=== PATIENT | male | born 1995 | race Caucasian/White ===

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

== ENCOUNTER 2018-12-16 21:24 | Emergency (ER) | payer MEDICAID ==
[2018-12-16] MEDS ORDERED: ONDANSETRON 4 MG/2 ML VIAL ONE (21:41)
[2018-12-16] MEDS ORDERED: NS 1,000 ML IV ONE (21:42)
[2018-12-16] MEDS ORDERED: ONDANSETRON 4 MG/2 ML VIAL IVP ONE (21:42)
[2018-12-16] MEDS ORDERED: ACETAMINOPHEN 500 MG TAB PO ONE (21:42)
--- NOTE | 2018-12-16 21:45 | EDPHY ---
H & P Stated Complaint: fever, cough x5 days Time Seen by Provider: 12/16/18 21:36 HPI/ROS: CHIEF COMPLAINT: Cough, sore throat, sinus congestion, fevers for 5 days HISTORY OF PRESENT ILLNESS: Patient is a 23-year-old healthy man who comes to the emergency department complaining of cough, sore throat, sinus congestion and fevers for 5 days. Over the last couple of days he has also started feel nauseous and has vomited 3 times today. Also mild diarrhea nonbloody. He states that he has had a fever up to 103. He did take ibuprofen around 4:00 a.m. This afternoon. No headache. No shortness of breath. He does have mild right rib pain after coughing hard yesterday. He had a negative flu swab taken on Thursday. His throat is now feeling better than it did earlier this week. Severity: Moderate Modifying factors: Improves with NyQuil or ibuprofen REVIEW OF SYSTEMS: Constitutional: See HPI EENTM: See HPI Respiratory: See HPI Cardiac: denies: chest pain, irregular heart rate, lightheadedness, palpitations Gastrointestinal/Abdominal: denies: abdominal pain, diarrhea, nausea, vomiting, blood streaked stools Genitourinary: denies: dysuria, frequency, hematuria, pain Musculoskeletal: denies: joint pain, muscle pain Skin: denies: lesions, rash, jaundice, bruising Neurological: denies: headache, numbness, paresthesia, tingling, dizziness, weakness Hematologic/Lymphatic: denies: blood clots, easy bleeding, easy bruising Immunologic/allergic: denies: HIV/AIDS, transplant 10 systems reviewed and negative except as noted EXAM: GENERAL: Well-appearing, well-nourished and in no acute distress. HEAD: Atraumatic, normocephalic. EYES: Pupils equal round and reactive to light, extraocular movements intact, sclera anicteric, conjunctiva are normal. ENT: TMs normal, nares congested, oropharynx clear without exudates. No erythema. Moist mucous membranes. NECK: Normal range of motion, supple without lymphadenopathy or JVD. LUNGS: Breath sounds clear to auscultation bilaterally and equal. No wheezes rales or rhonchi. HEART: Regular rate and rhythm without murmurs, rubs or gallops. ABDOMEN: Soft, nontender, normoactive bowel sounds. No guarding, no rebound. No masses appreciated. BACK: No CVA tenderness, no spinal tenderness, step-offs or deformities EXTREMITIES: Normal range of motion, no pitting or edema. No clubbing or cyanosis. NEUROLOGICAL: Cranial nerves II through XII grossly intact. Normal speech, normal gait. 5/5 strength, normal movement in all extremities, normal sensation , normal reflexes PSYCH: Normal mood, normal affect. SKIN: Warm, dry, normal turgor, no visible rashes or lesions. Source: Patient Exam Limitations: No limitations - Personal History Current Tetanus/Diphtheria Vaccine: Yes - Medical/Surgical History Hx Asthma: No Hx Chronic Respiratory Disease: No Hx Diabetes: No Hx Cardiac Disease: No Hx Renal Disease: No Hx Cirrhosis: No Hx Alcoholism: No Hx HIV/AIDS: No Hx Splenectomy or Spleen Trauma: No Other PMH: depression - Family History Significant Family History: No pertinent family hx - Social History Smoking Status: Never smoked Alcohol Use: Sober Drug Use: None Constitutional: Initial Vital Signs Temperature (C) 37.5 C 12/16/18 21:25 Heart Rate 84 12/16/18 21:25 Respiratory Rate 18 12/16/18 21:25 Blood Pressure 155/90 H 12/16/18 21:25 O2 Sat (%) 96 12/16/18 21:25 O2 Delivery Mode Room Air Allergies/Adverse Reactions: No Known Allergies Allergy (Unverified 12/16/18 21:27) Home Medications: Medication Instructions Recorded Bupropion HCl 12/16/18 Ondansetron Odt [Zofran Odt 4 mg 4 mg PO Q4 PRN #20 tab 12/16/18 (RX)] Medical Decision Making ED Course/Re-evaluation: 10:30 p.m. the patient is feeling much better. His symptoms are consistent with a viral syndrome. We have been seeing a lot of adenovirus with similar symptoms recently. He is tolerating p. O.. He is eager to go home. Will give him prescription and take home pack for Zofran. He is happy with this plan. I encouraged antipyretics rest and hydration. Differential Diagnosis: Partial list of the Differential diagnosis considered include but were not limited to; gastritis, upper respiratory tract infection, influenza, strep throat and although unlikely based on the history and physical exam, I also considered pneumonia, sepsis. - Data Points Medications Given: Discontinued Medications Acetaminophen (Tylenol) 1,000 mg PO EDNOW ONE Stop: 12/16/18 21:43 Last Admin: 12/16/18 21:45 Dose: 1,000 mg Sodium Chloride (Ns) 1,000 mls @ 0 mls/hr IV EDNOW ONE; Wide Open PRN Reason: Protocol Stop: 12/16/18 21:43 Last Admin: 12/16/18 21:45 Dose: 1,000 mls Ondansetron HCl (Zofran) 4 mg IVP EDNOW ONE Stop: 12/16/18 21:43 Last Admin: 12/16/18 21:45 Dose: 4 mg Ondansetron HCl (Zofran Odt 4 Mg Prepack#2) 1 btl TAKEHOME EDNOW ONE Stop: 12/16/18 22:31 Last Admin: 12/16/18 22:39 Dose: 1 btl Departure - Departure Disposition: Home, Routine, Self-Care Clinical Impression: Viral syndrome Vomiting Qualifiers: Vomiting type: unspecified Vomiting Intractability: non-intractable Nausea presence: with nausea Qualified Code(s): R11.2 - Nausea with vomiting, unspecified Condition: Fair Instructions: Ondansetron (By mouth), Acute Nausea and Vomiting (ED), Viral Syndrome (ED) Referrals: NONE *PRIMARY CARE P,. [Primary Care Provider] - As per Instructions [facility] [[facility]] - As per Instructions Prescriptions: Ondansetron Odt [Zofran Odt 4 mg (RX)] 4 mg PO Q4 PRN #20 tab PRN Reason: Nausea & Vomiting
[2018-12-16] MEDS ORDERED: ONDANSETRON 4MG PREPACK#2 BTL TAKEHOME ONE (22:30)
[2018-12-16 22:43] VITALS: BP 131/76
== END 2018-12-16 22:43 | disposition home or self-care (01) ==
DX: B34.9 Viral infection, unspecified (principal); R11.2 Nausea with vomiting, unspecified; E86.9 Volume depletion, unspecified
CPT/HCPCS: 96374; J2405